=== PATIENT | female | born 1950 | race Caucasian/White ===

== ENCOUNTER 2020-06-28 07:48 | Day surgery (SDC) | payer MEDICARE, OTHER ==
[~2020-06-28] VITALS: Ht 160 cm; Wt 70.3 kg
[~2020-06-28 07:48] MED LIST: COZAAR50 MG PO; MOBIC7.5 MG PO; NORVASC5 MG PO; TIROSINT75 MCG PO; ZANAFLEX4 MG PO
[2020-06-28 08:40] VITALS: BP 109/79; Ht 160 cm; Wt 70.3 kg
[2020-06-28 09:08] LABS: HEMATOCRIT 44.4 % (36.0-48.0); HEMOGLOBIN 14.3 g/dL (12-16); MCH 31.2 pg (26.0-34.0); MCHC 32.2 g/dL (31.0-37.0); MCV 96.9 fL (80.0-100.0); MEAN PLATELET VOLUME 10.9 fL (7.4-10.4); RBC 4.58 10x6/uL (4.00-5.40); RDW 14.1 % (11.5-14.5); WBC 12.3 10x3/uL (4.8-10.8)
--- NOTE | 2020-06-28 11:04 | NUR ---
DC INSTRUCTIONS GIVEN TO PT. STATES UNDERSTANDING. DC'D IV CATH FULLY INTACT. WILL DC SHORTLY.
--- NOTE | 2020-06-28 11:22 | NUR ---
PT LEFT UNIT VIA WC AT 1102
--- NOTE | 2020-06-28 13:48 | HP ---
PATIENT: FATUMA DAVENPORT MEDICAL RECORD: [id number] ACCOUNT: [id number] LOCATION:[facility] : 49 ADMISSION DATE: 06/28/20 PCP: YSABEL MESA MD HISTORY AND PHYSICAL EXAMINATION PREOPERATIVE HISTORY AND PHYSICAL HISTORY OF PRESENT ILLNESS: Fatuma is a 70-year-old female with hoarseness and a right laryngeal lesion. She has been admitted for laryngoscopy and excision of the lesion. PAST MEDICAL HISTORY: Includes hypertension, hypothyroidism. PAST SURGICAL HISTORY: Includes hysterectomy, varicose vein surgery, breast augmentation. CURRENT MEDICATIONS: Levothyroxine, losartan, amlodipine, Meloxicam, tizanidine. ALLERGIES: ERYTHROMYCIN. PHYSICAL EXAMINATION: GENERAL: She is healthy-appearing. She has got a weak breathy voice, not able to talk normal at all. FACE: Normal, symmetric, no lesions. EYES: Sclerae and conjunctivae are normal. EARS: Canals and TMs normal. NOSE: No mass, polyps or drainage. ORAL CAVITY AND OROPHARYNX: Tongue protrudes midline. Pharynx is normal. NECK: No masses, no adenopathy. Laryngoscopy reveals rounded bulky mass pushing in the false cord anteriorly on the right side. No obvious exophytic or mucosal changes could be cystic. Cord mobility looks normal. I cannot really see the entire right anterior true cord. Airway is not compromised. CHEST: Clear. CARDIOVASCULAR: Regular rate and rhythm, no murmur. EXTREMITIES: Normal. IMPRESSION: Right laryngeal mass and hoarseness. PLAN: Microsuspension laryngoscopy excision/biopsy of the right false cord lesion. TRANSINT:[id number] Voice Confirmation ID: [id number] DOCUMENT ID: [id number] YSABEL MESA MD at 1348 CC: [id number] DICTATION DATE: 06/24/20 1114 COLD ROLL CATCHER: 06/24/20 1155 [facility] 06/28/20 [place] [id number]
--- NOTE | 2020-06-29 11:36 | OP ---
PATIENT NAME: GENESIS DAVENPORT MEDICAL RECORD: [id number] :48 LOCATION:[facility] ADMISSION DATE: SURGEON: YSABEL MESA MD DATE OF OPERATION: 06/28/2020 PREOPERATIVE DIAGNOSES: Hoarseness and right laryngeal lesion. POSTOPERATIVE DIAGNOSES: Hoarseness and right laryngeal lesion. PROCEDURE: Microsuspension laryngoscopy, excision of right false cord lesion. SURGEON: Ysabel Mesa MD ANESTHESIA: General orotracheal. BLOOD LOSS: Less than 1 mL. SPECIMENS: Right anterior false cord lesion. COMPLICATIONS: None. DISPOSITION: Recovery stable. FINDINGS: A pedunculated polyp attached to the anterior aspect of the right false cord extending onto the superior surface of the true cord somewhat as well, was attached to about the anterior one-third of the false cord on the right. No other lesions. DESCRIPTION OF PROCEDURE: She was brought to the operating room, placed in supine position, sedated and intubated by anesthesia. The eyes were taped. Table was turned 90 degrees. Head drapes were applied. She was positioned for laryngoscopy. Using a headlight, the oral cavity and oropharynx were examined. A plastic tooth guard was placed. She had very poor dentition. A Kleinsasser J laryngoscope was inserted and used to examine the posterior pharyngeal wall, lateral pharyngeal núñez, vallecula, base of tongue, supraglottic larynx, piriforms, post-cricoid area. The only lesion identified was the mass on the right anterior false cord. Laryngoscope was positioned to look at the cords where she was placed in suspension and a microscope with 400 mm lens was brought in, under slight pressure on the anterior thyroid cartilage gave excellent view of the entire lesion. With suction, I could lift it up and see that the cord underneath was normal. Really, the polypoid floppy polyp was a pedunculated polyp, was large enough to obscure the view pretty much the entire front half of both cords, but I could lift it up and see that it was attached from the anterior commissure to about the middle third of the right false cord. Using upbiting 2 mm cup forceps and upbiting scissors, I was able to trim this off of the false cord from posterior to anterior right up to the anterior commissure about 1 mm away, leaving the anterior commissure intact. Anterior commissure of the false cord was really right above the true cords. Once that was removed, everything was smooth. The subglottis, upper trachea were visualized and normal. The cords themselves were normal. There was a little bit of polypoid changes to the anterior aspect of the left false cord as well that was left alone. Specimens were sent for path. Afrin pledget was placed for a few minutes and then the area was reexamined. It was completely clean and dry. The laryngoscope and plastic tooth guard were removed. She was awakened, extubated, and transported to recovery in good condition. No complications. OPERATIVE REPORT [id number] ETHELGENESISMORRO JURADO NTS:[id number] Voice Confirmation ID: [id number] DOCUMENT ID: [id number] YSABEL MESA MD at 1136 CC: [id number] DICTATION DATE: 06/28/20 1320 LATRINE CLEANER: 06/28/202229 [facility] 06/28/20 [facility] [address] [place] [address]
== END 2020-06-28 11:08 | disposition home or self-care (01) ==
LOC: D.OPS 07:48 → D.PAN 10:15 → D.OPS 11:08
PROVIDERS: Anesthesiology; ATTEND Otolaryngology
DX: R49.0 Dysphonia (principal); I10 Essential (primary) hypertension; E03.9 Hypothyroidism, unspecified; J38.1 Polyp of vocal cord and larynx